=== PATIENT | female | born 1990 | race African-American/Black ===

== ENCOUNTER 2017-12-01 21:46 | Emergency (ER) | payer OTHER ==
[2017-12-01 21:52] VITALS: BP 130/58; PULSE 82; TEMP 98.2; BMI 34.3
--- NOTE | 2017-12-01 21:57 | PDOC ---
History of Present Illness - General Chief Complaint: Pain Stated Complaint: ABD PAIN + Time Seen by Provider: 12/01/17 21:49 - History of Present Illness Initial Comments: 12/01/17 22:22 The patient is a 27 year old female 10 week female with no significant PMH who presents for evaluation of lower abdominal pain. The patient reports that she has had many miscarriages in the past, but has not followed with a regular pickle solution maker with her current and has not had a recent US. She reports onset of lower abdominal cramping beginning earlier today prompting her presentation to the ED for evaluation. She otherwise denies vaginal bleeding, or vaginal discharge. She denies fevers, chills, nausea, vomiting, or changes with urination as well. Past History - Past Medical History Allergies/Adverse Reactions: Allergies Allergy/AdvReac Type Severity Reaction Status Date / Time No Known Drug Allergies Allergy Verified 12/01/17 21:49 lactose AdvReac Severe Vomiting Verified 12/01/17 21:49 Home Medications: Ambulatory Orders Albuterol Sulfate Inhaler - [Ventolin Hfa Inhaler -] 1 - 2 inh PO PRN 11/08/15 Cyclobenzaprine HCl [Flexeril -] 10 mg PO TID 11/08/15 Fluticasone/Salmeterol [Advair 250-50 Diskus] 1 each IH PRN 11/08/15 Ibuprofen [Motrin -] 400 mg PO TID PRN 11/08/15 [place] Carbonate [Eskalith -] 100 mg PO BID 11/08/15 Quetiapine Fumarate [Seroquel -] 300 mg PO HS 11/08/15 Topiramate [Topamax] 25 mg PO BID 11/08/15 Albuterol Sulfate Inhaler - [Ventolin HFA Inhaler -] 2 puff PO PRN PRN 08/17/16 Vit/Iron Fum/Folic AC [ Tablet] 1 tablet PO DAILY 08/17/16 [place] Carbonate [Eskalith -] 150 mg PO BID #60 capsule 04/28/17 Quetiapine Fumarate [Seroquel] 100 mg PO HS #60 tablet 04/28/17 Topiramate [Topamax] 25 mg PO BID #60 cap.sprink 04/28/17 Asthma: Yes Cancer: No Cardiac Disorders: No CVA: No COPD: No CHF: No Dementia: No Diabetes: No GI Disorders: No Disorders: No HTN: No Hypercholesterolemia: No Kidney Stones: No Liver Disease: No Seizures: No Thyroid Disease: No - Reproductive History PID: No - Immunization History Immunization Up to Date: Yes - Suicide/Smoking/Psychosocial Hx Smoking History: Current some day smoker Have you smoked in the past 12 months: No Number of Cigarettes Smoked Daily: 4 Cigars Per Day: 0 Information on smoking cessation initiated: No 'Breaking Loose' booklet given: 11/08/15 Hx Alcohol Use: No Drug/Substance Use Hx: Yes Substance Use Type: Alcohol, Marijuana Hx Substance Use Treatment: Yes (this is her first inpatient rehba.Pt was treated on outpatient basis anly) Review of Systems - Review of Systems Comments:: 12/01/17 22:27 Constitutional: No fevers, chills, fatigue, malaise HEENT: No Rhinorrhea, nasal congestion, visual changes Cardiovascular: No chest pain, syncope, palpitations, lightheadedness Respiratory: No Cough, SOB, Hemoptysis, Gastrointestinal: Lower abdominal cramping. No Nausea, Vomiting, Constipation, Diarrhea, Melena Genitourinary: No Dysuria, Frequency, Urgency, Hesitancy, Hematuria, Flank pain Musculoskeletal: No Myalgia, arthralgia Skin: No rashes, itching, bruising, pallor Neurologic: No Headache, Dizziness, Numbness, Weakness, or Tingling Psychiatric: No Hallucinations. No SI or HI *Physical Exam - Vital Signs Last Vital Signs Temp Pulse Resp BP Pulse Ox 98.2 F 82 16 130/58 100 12/01/17 21:49 12/01/17 21:49 12/01/17 21:49 12/01/17 21:49 12/01/17 21:49 - Physical Exam Comments: 12/01/17 22:28 General Appearance: Nourished. No Apparent Distress HEENT: EOMI, TRISH. No Pharyngeal Erythema, Tonsillar Exudate, Tonsillar Erythema Neck: No Cervical Lymphadenopathy Respiratory/Chest: Lungs Clear, Normal Breath Sounds. No Crackles, Rales, Rhonchi, Wheezing Cardiovascular: Regular Rhythm, Regular Rate. No Murmur, Gallops, Rubs Gastrointestinal/Abdominal: Normal Bowel Sounds, Soft. Mild discomfort with deep palpation in the LLQ and suprapubic regions. No Guarding, Rebound, Pelvic Exam: Normal external exam, Cervical OS closed without bleeding. No CMT or Adenexal tenderness. Musculoskeletal: No CVA Tenderness Extremity: Normal Capillary Refill Integumentary: Normal Color, Dry, Warm Neurologic: Fully Oriented, Alert, Normal Mood/Affect, Normal Response, ED Treatment Course - LABORATORY CBC & Chemistry Diagram: 12/01/17 23:10 12/01/17 23:10 Medical Decision Making - Medical Decision Making 12/01/17 22:30 The patient is a 27 year old female 3 month female with no significant PMH who presents for evaluation of lower abdominal pain. Differential includes but is not limited to: UTI, Round Ligament Pain, Infectious, Metabolic derangement. Given the patient's symptoms and history of high risk pregnancies, we will obtain a cbc, cmp, ua, beta HCG, and transvaginal US to evaluate further for possible etiologies. We will treat with iv fluids and iv tylenol in the meantime. We will continue to monitor and reassess. 12/01/17 23:49 CBC, ua are unremarkable. Transvaginal US demonstrated a single live intrauterine at 9weeks 6days as read by our radiologist. We are comfortable discharging the patient home at this time with OB follow up. We discussed the results, plan, and return precautions with the patient who voiced understanding and is agreeable with the plan. *DC/Admit/Observation/Transfer Diagnosis at time of Disposition: Abdominal pain during Qualifiers: Trimester: first trimester Qualified Code(s): O26.891 - Other specified related conditions, first trimester; R10.9 - Unspecified abdominal pain; R10.9 - Unspecified abdominal pain - Discharge Dispostion Disposition: HOME Condition at time of disposition: Good Admit: No - Referrals Referrals: Igor Singh MD [Staff Physician] - - Patient Instructions Printed Discharge Instructions: DI for -- Discomforts and Remedies, DI for Abdominal Pain -- Early Additional Instructions: Please return to the ER if you experience concerning or worsening symptoms including worsening pain, vomiting, fevers, or vaginal bleeding. Your lab results and ultrasound were normal here in the ER and show a normal healthy . It is important that you call to schedule a follow up appointment with your TREE FRUIT AND NUT FARMING SUPERVISOR physician within 2-3 days to discuss your ER visit and further management of your symptoms. - Post Discharge Activity
[2017-12-01] MEDS ORDERED: SODIUM CHLORIDE 1,000 ML IV STA (22:16)
[2017-12-01] MEDS ORDERED: ACETAMINOPHEN 1000 MG/100 ML VIAL (NON FORMULARY) IVPB ONE (22:16)
--- NOTE | 2017-12-01 22:57 | PDOC ---
Attending Attestation - Resident Resident Name: Miles eBllamy - ED Attending Attestation I have performed the following: I have examined & evaluated the patient, The case was reviewed & discussed with the resident, I agree w/resident's findings & plan, Exceptions are as noted - HPI HPI: 12/01/17 22:56 27 yo female BIBA from home for pelvic discomfort ,she states she is - Physicial Exam PE: 12/01/17 23:54 27-year-old female who states she's had some pelvic discomfort. She states she is about 2 months Head normocephalic/atraumatic. Neck supple Lungs clear to auscultation. CV S regular rate and rhythm S1, S2 Abdomen soft, no guarding. Pelvic done by Dr. Bellamy, no vaginal bleeding, os closed. Extremities no edema, no cellulitis. Skin warm and dry, no petechiae, no rashes. Neuro alert and oriented 3, ambulatory Psych patient is appropriate - Medical Decision Making 12/01/17 23:56 Patient has an December 18 appointment with her IN FLIGHT REFUELING OPERATOR for continued care. Transvaginal ultrasound tonight shows single live intrauterine of 9 weeks and 6 days with heart tones greater than 150 Impression pelvic discomfort during
[2017-12-01] MEDS ORDERED: ACETAMINOPHEN INJECTION 100 ML IVPB ONE (23:03)
[2017-12-01 23:25] LABS: EOS % 0.9 % (0-4.5); HEMATOCRIT 37.7 % (32.4-45.2); LYMPH % 40.8 % (8-40); MCHC 34.4 g/dl (32.0-36.0); MEAN PLT VOLUME 8.4 fl (7.5-11.1); MONO % 7.8 % (3.8-10.2); NEUT % 49.5 % (42.8-82.8); PLATELET COUNT 344 K/MM3 (134-434); RBC 4.05 M/mm3 (3.60-5.2)
[2017-12-01 23:28] LABS: HCG,QUALITATIVE URINE POSITIVE
[2017-12-01 23:31] LABS: URINE APPEARANCE CLEAR; URINE BILIRUBIN NEGATIVE (NEGATIVE); URINE BLOOD NEGATIVE (NEGATIVE); URINE COLOR STRAW; URINE GLUCOSE (UA) NEGATIVE (NEGATIVE); URINE KETONE NEGATIVE (NEGATIVE); URINE LEUK ESTERASE NEGATIVE (NEGATIVE); URINE NITRITE NEGATIVE (NEGATIVE); URINE PROTEIN NEGATIVE (NEGATIVE); URINE UROBILINOGEN NEGATIVE mg/dL (0.2-1.0)
== END 2017-12-02 00:29 | disposition home or self-care (01) ==
LOC: JER 21:46
PROC: 3E033NZ Introduction of Analgesics, Hypnotics, Sedatives into Peripheral Vein, Percutaneous Approach (ICD-10-PCS; principal; 2017-12-01)
DX: O26.891 Other specified pregnancy related conditions, first trimester (principal); R10.30 Lower abdominal pain, unspecified; Z3A.10 10 weeks gestation of pregnancy
CPT/HCPCS: 36415; 76801-TC; 81003; 84703; 85025; 96374; 99283-25; J0131; J7030

== ENCOUNTER 2018-04-10 15:22 | Emergency (ER) | payer OTHER ==
[2018-04-10 15:35] VITALS: BMI 37.8
[2018-04-10 16:11] VITALS: BP 103/55; PULSE 82; TEMP 98.4
== END 2018-04-10 16:50 | disposition home or self-care (01) ==
LOC: JER 15:22
DX: O26.893 Other specified pregnancy related conditions, third trimester (principal); R10.31 Right lower quadrant pain; Z3A.29 29 weeks gestation of pregnancy
CPT/HCPCS: 99281-25

== ENCOUNTER 2018-06-15 02:25 | Inpatient (IN) | payer SELFPAY ==
[~2018-06-15 02:25] MED LIST: ELECTROLYTE-148 SOLN 500 ML IV ONE
[2018-06-15] MEDS ORDERED: ELECTROLYTE-148 SOLN 1,000 ML IV SCH ×2 (03:25→04:10)
[2018-06-15 03:39] LABS: BASO % 0.4 % (0-2.0); EOS % 0.8 % (0-4.5); HEMATOCRIT 31.9 % (32.4-45.2); HEMOGLOBIN 10.8 GM/dL (10.7-15.3); LYMPH % 22.2 % (8-40); MCH 31.1 pg (25.7-33.7); MCHC 33.7 g/dl (32.0-36.0); MEAN CELL VOLUME 92.1 fl (80-96); MEAN PLT VOLUME 8.7 fl (7.5-11.1); NEUT % 67.6 % (42.8-82.8); PLATELET COUNT 351 K/MM3 (134-434); RBC 3.47 M/mm3 (3.60-5.2); RDW 13.1 % (11.6-15.6)
[2018-06-15] MEDS ORDERED: ELECTROLYTE-148 SOLN 500 ML IV ONE (03:40)
[2018-06-15] MEDS ORDERED: CITRIC ACID/SODIUM CITRATE 30 ML UNIT-DOSE CUP PO ONE (03:40)
[2018-06-15 03:53] LABS: COCAINE, UR NEGATIVE ng/ml (CUTOFF=300); METHADONE, UR NEGATIVE ng/ml (CUTOFF=300); OPIATES, URI NEGATIVE ng/ml (CUTOFF=300); PHENCYCLIDINE,URINE NEGATIVE ng/ml (CUTOFF=25); URINE AMPHETAMINES NEGATIVE ng/ml (CUTOFF=500); URINE BARBITURATES NEGATIVE ng/ml (CUTOFF=200); URINE BENZODIAZEPINES NEGATIVE ng/ml (CUTOFF=200)
[2018-06-15 04:06] LABS: INR 0.92 (0.83-1.09); PROTHROMBIN TIME (PATIENT) 10.9 SEC (9.7-13.0)
[2018-06-15 04:08] LABS: ACTIVATED PTT 28.1 SECONDS (25.2-36.5)
[2018-06-15 04:14] LABS: ANION GAP 9 MMOL/L (8-16); BLOOD UREA NITROGEN 6 mg/dL (7-18); CALCIUM 8.5 mg/dL (8.5-10.1); CHLORIDE 106 mmol/L (98-107); CO2 22 mmol/L (21-32); CREATININE 0.5 mg/dL (0.55-1.3); GLUCOSE,RANDOM 81 mg/dL (74-106); POTASSIUM 3.7 mmol/L (3.5-5.1); SODIUM 137 mmol/L (136-145)
[2018-06-15 04:29] VITALS: BMI 42.0
[2018-06-15] MEDS ORDERED: ONDANSETRON 4 MG/2 ML VIAL IVPUSH PRN (04:43)
[2018-06-15] MEDS ORDERED: morphine SULFATE/Preservative Free 0.5 MG/ML (1cc Syringe) ONE (04:52)
[2018-06-15] MEDS ORDERED: DEXTROSE 5%-LACTATED RINGERS 1,000 ML IV SCH (05:00)
[2018-06-15] MEDS ORDERED: KETOROLAC TROMETHAMINE 30 MG/1 ML VIAL ONE (05:00)
--- NOTE | 2018-06-15 05:05 | HP ---
Past Medical History - Admission Chief Complaint: Labor pain History of Present Illness: 27 yo @ 38 weeks gestation, with 2 prior C-Sections, presents c/o labor pain. Patient was then admitted for repeat . History Source: Patient Limitations to Obtaining History: No Limitations - Past Medical History ...: 12 ...Para: 2 ...Term: 0 ...: 2 ...Spon : 5 ...Induced : 4 ...Multiple Gestation: 0 ...LMP: 09/19/17 ... Weeks Gestation by Dates: 38.3 ...EDC by Dates: 06/26/18 ...EDC by Sono: 06/25/18 - Past Surgical History Past Surgical History: Yes: Hx Myomectomy: No Hx Transabdominal Cerclage: No - Smoking History Smoking history: Current some day smoker Have you smoked in the past 12 months: Yes Aproximately how many cigarettes per day: 5 - Alcohol/Substance Use Hx Alcohol Use: No Home Medications - Allergies Allergies/Adverse Reactions: Allergies Allergy/AdvReac Type Severity Reaction Status Date / Time No Known Drug Allergies Allergy Verified 06/15/18 03:18 lactose AdvReac Severe Vomiting Verified 05/05/18 18:12 - Home Medications Home Medications: Ambulatory Orders Vit/Iron Fum/Folic AC [ Tablet] 1 tablet PO DAILY 08/17/16 Family Disease History - Family Disease History Family History: Unremarkable Review of Systems - Review of Systems Constitutional: reports: No Symptoms Eyes: reports: No Symptoms HENT: reports: No Symptoms Neck: reports: No Symptoms Cardiovascular: reports: No Symptoms Respiratory: reports: No Symptoms Gastrointestinal: reports: No Symptoms Genitourinary: reports: Pain Breasts: reports: No Symptoms Reported Musculoskeletal: reports: No Symptoms Integumentary: reports: No Symptoms Neurological: reports: No Symptoms Endocrine: reports: No Symptoms Hematology/Lymphatic: reports: No Symptoms Psychiatric: reports: No Symptoms Pain Intensity: 8 Physical Exam - Maternity Vital Signs: Vital Signs Temperature 99.0 F 06/15/18 04:18 Pulse Rate 76 06/15/18 04:18 Respiratory Rate 18 06/15/18 04:18 Blood Pressure 127/71 06/15/18 04:18 O2 Sat by Pulse Oximetry (%) Constitutional: Yes: Well Nourished Eyes: Yes: Conjunctiva Clear HENT: Yes: Atraumatic Neck: Yes: Supple Cardiovascular: Yes: Regular Rate and Rhythm Lungs: Clear to auscultation - Abdominal Exam/OB Number of Fetuses: Single Presentation: Vertex Intensity: Mod/Strong - Vaginal Exam/OB Dilatation (cm): 1 Effacement (%): 70 Amniotic Membrane Status: Intact Presentation: Vertex/Position Station: -2 - Physical Exam Musculoskeletal: Yes: WNL Integumentary: Yes: WNL ...Motor Strength: WNL Psychiatric: Yes: Alert, Oriented - Labs Lab Results: CBC, BMP 06/15/18 03:10 06/15/18 03:10 Problem List - Problems (1) 38 weeks gestation of Code(s): Z3A.38 - 38 WEEKS GESTATION OF (2) Pain during labor Code(s): O99.89 - OTH DISEASES AND CONDITIONS COMPL PREG/CHLDBRTH; R52 - PAIN, UNSPECIFIED (3) Previous section complicating Code(s): O34.219 - MATERNAL CARE FOR UNSP TYPE SCAR FROM PREVIOUS DEL Assessment/Plan 38 weeks gestation Previous Labor pain Pre op for repeat Consent signed Anesthesia to see patient
[2018-06-15] MEDS ORDERED: SODIUM CHLORIDE 0.9% P/F 10 ML VIAL IJ ONE (05:22)
[2018-06-15] MEDS ORDERED: ceFAZolin SODIUM 1 GM VIAL ONE (05:22)
[2018-06-15] MEDS ORDERED: ePHEDrine SULFATE 50 MG/1 ML AMPULE ONE (05:33)
[2018-06-15] MEDS ORDERED: OXYTOCIN 10 UNITS/ML VIAL ONE (05:36)
[2018-06-15] MEDS ORDERED: OXYTOCIN 20 UNITS in 0.9% NS 20 UNIT/1,000 ML INFUS.BAG IV ONE (06:07)
[2018-06-15] MEDS ORDERED: METHYLERGONOVINE MALEATE 0.2 MG/1 ML AMP IM PRN (06:10)
--- NOTE | 2018-06-15 06:13 | OP ---
Operative Note - Note: Operative Date: 06/15/18 Pre-Operative Diagnosis: Previous in labor Operation: Repeat Low Transverse Post-Operative Diagnosis: Same as Pre-op Surgeon: Sultana Dickerson Substation Electrician Supervisor: Narayan Mata Anesthesia: Spinal Specimens Removed: Placenta Estimated Blood Loss (mls): 600 Operative Report Dictated: Yes
[2018-06-15] MEDS: OXYTOCIN 20 UNITS in 0.9% NS 20 UNIT/1,000 ML INFUS.BAG IV SCH ×2 (06:20→18:00)
[2018-06-15] MEDS: IBUPROFEN 800 MG/8 ML IJ IVPB PRN ×2 (07:25→15:37)
[2018-06-15] MEDS ORDERED: IBUPROFEN 800 MG/8 ML IJ IVPB ONE (07:30)
[2018-06-15] MEDS ORDERED: TUBERCULIN PPD 5 TU/0.1ML SYRINGE (IN PATIENT USE ONLY) ID ONE (10:45)
[2018-06-15] MEDS ORDERED: oxyCODONE HCL 5 MG TABLET PO PRN ×2 (19:42→19:43)
[2018-06-15] MEDS: oxyCODONE HCL 5 MG TABLET PO PRN (20:05)
[2018-06-15] MEDS: SIMETHICONE 80 MG TAB.CHEW (FP) PO PRN (20:05)
[2018-06-16] MEDS: SIMETHICONE 80 MG TAB.CHEW (FP) PO PRN ×5 (01:11→19:41)
[2018-06-16] MEDS: oxyCODONE HCL 5 MG TABLET PO PRN ×5 (01:11→19:41)
[2018-06-16] MEDS: OXYTOCIN 20 UNITS in 0.9% NS 20 UNIT/1,000 ML INFUS.BAG IV SCH (02:23)
[2018-06-16] MEDS: IBUPROFEN 600 MG TABLET (FP) PO PRN ×4 (05:18→19:41)
[2018-06-16] MEDS ORDERED: BISACODYL 10 MG SUPP.RECT RC PRN (06:10)
[2018-06-16 08:09] LABS: BASO % 0.4 % (0-2.0); EOS % 1.7 % (0-4.5); HEMATOCRIT 25.4 % (32.4-45.2); HEMOGLOBIN 8.5 GM/dL (10.7-15.3); LYMPH % 23.2 % (8-40); MCH 31.1 pg (25.7-33.7); MCHC 33.5 g/dl (32.0-36.0); MEAN CELL VOLUME 92.8 fl (80-96); MEAN PLT VOLUME 8.6 fl (7.5-11.1); MONO % 10.9 % (3.8-10.2); NEUT % 63.8 % (42.8-82.8); PLATELET COUNT 240 K/MM3 (134-434); RBC 2.74 M/mm3 (3.60-5.2); RDW 12.7 % (11.6-15.6)
[2018-06-16] MEDS ORDERED: DIPHTH,PERTUSS(ACELL),TET 0.5 ML DISP.SYRIN IM ONE ×2 (14:00→17:00)
[2018-06-16] MEDS ORDERED: TUBERCULIN PPD 5 TU/0.1ML SYRINGE (IN PATIENT USE ONLY) ID ONE (16:30)
--- NOTE | 2018-06-16 16:54 | PN ---
Post Progress Note Type of Delivery: Repeat C/S Vital Signs: Vital Signs Temperature 98.5 F 06/16/18 07:50 Pulse Rate 71 06/16/18 07:50 Respiratory Rate 18 06/16/18 07:50 Blood Pressure 108/60 06/16/18 07:50 O2 Sat by Pulse Oximetry (%) 100 06/15/18 07:14 Uterus: Yes: Fundus Firm, Fundus @ umbilicus Incision: Yes: Dressing dry and intact Abdomen/GI: Yes: Abdomen soft Lochia: Yes: Rubra Lochia, amount: Small Extremities: Yes: Calves non-tender Activity: Ambulating - Labs Labs: CBC WBC 11.0 K/mm3 (4.0-10.0) H 06/16/18 07:25 RBC 2.74 M/mm3 (3.60-5.2) L 06/16/18 07:25 Hgb 8.5 GM/dL (10.7-15.3) L 06/16/18 07:25 Hct 25.4 % (32.4-45.2) L D 06/16/18 07:25 MCV 92.8 fl (80-96) 06/16/18 07:25 MCH 31.1 pg (25.7-33.7) 06/16/18 07:25 MCHC 33.5 g/dl (32.0-36.0) 06/16/18 07:25 RDW 12.7 % (11.6-15.6) 06/16/18 07:25 Plt Count 240 K/MM3 (134-434) D 06/16/18 07:25 MPV 8.6 fl (7.5-11.1) 06/16/18 07:25 Absolute Neuts (auto) 7.0 K/mm3 (1.5-8.0) 06/16/18 07:25 Neutrophils % 63.8 % (42.8-82.8) 06/16/18 07:25 Lymphocytes % 23.2 % (8-40) 06/16/18 07:25 Monocytes % 10.9 % (3.8-10.2) H 06/16/18 07:25 Eosinophils % 1.7 % (0-4.5) D 06/16/18 07:25 Basophils % 0.4 % (0-2.0) 06/16/18 07:25 Nucleated RBC % 0 % (0-0) 06/16/18 07:25 Problem List - Problems (1) S/P section Code(s): Z98.891 - HISTORY OF UTERINE SCAR FROM PREVIOUS SURGERY Assessment/Plan 27yo s/p RLTCS, POD#1 Routine PP care OOB, ambulate Labs reviewed, wnl Anticipate d/c to home POD#3 with follow up at her primary OB office Ryder Oakley MD
--- NOTE | 2018-06-16 18:42 | PATH ---
Surgical Pathology Report Patient Name: SYLVIA ALY Med. Rec. #: [id number] /Age/Gender: 1990 (Age: 27) / F Account: [id number] Location: [facility] OBS/SENIOR C WEB DEVELOPER Taken: 06/15/2018 Received: 06/15/2018 Reported: 06/16/2018 Physicians: Sultana Dickerson M.D. Specimen(s) Received PLACENTA Clinical History , 38.4 weeks, history of asthma, SAB x 5, IAB x 4, history of preeclampsia, and labor Previous surgery: Previous x 2 (05/2011, 10/2016) Final Diagnosis PLACENTA, SECTION: 470 G THIRD TRIMESTER PLACENTA WITH TRIVASCULAR UMBILICAL CORD AND UNREMARKABLE PLACENTAL MEMBRANES. Electronically Signed Caitlyn Alarcon M.D. Gross Description The specimen is received fresh labeled "placenta" is a 470 gram, 18 x 6 x 1.8 cm. placenta with attached membranes and umbilical cord. The attached membranes are opaque, yellow-tinged and insert marginally. The umbilical cord measures 26 cm. in length and averages 1.5 cm. in diameter. The cord inserts eccentrically, 6 cm. to the nearest margin. No true knots or strictures are identified. Cut surface of the umbilical cord reveals 3 vessels. The surface is yanez-blue with minimal fibrin deposition and appropriate caliber vessels. The maternal surface is red-brown with focal defects. Sectioning reveals red-brown, spongy parenchyma. No lesions are identified. Log Chain Feeder sections are submitted in three cassettes as follows: 1- membrane rolls and umbilical cord; 2-3- full thickness sections of placenta. MLSZ/06/15/2018 sanml/06/15/2018
[2018-06-16] MEDS: diphenhydrAMINE HCL 25 MG CAPSULE (FP) PO PRN (22:16)
[2018-06-17] MEDS: oxyCODONE HCL 5 MG TABLET PO PRN ×6 (00:35→20:05)
[2018-06-17] MEDS: SIMETHICONE 80 MG TAB.CHEW (FP) PO PRN ×6 (00:35→20:06)
[2018-06-17] MEDS: IBUPROFEN 600 MG TABLET (FP) PO PRN ×6 (00:36→20:06)
[2018-06-17] MEDS: diphenhydrAMINE HCL 25 MG CAPSULE (FP) PO PRN ×2 (08:52→14:52)
--- NOTE | 2018-06-17 08:56 | PN ---
Post Progress Note Type of Delivery: Repeat C/S Vital Signs: Vital Signs Temperature 98.6 F 06/16/18 22:43 Pulse Rate 70 06/16/18 22:43 Respiratory Rate 18 06/16/18 22:43 Blood Pressure 111/70 06/16/18 22:43 O2 Sat by Pulse Oximetry (%) 100 06/16/18 22:00 Breast Exam: Yes: Soft Uterus: Yes: Fundus Firm, Fundus below umbilicus Abdomen/GI: Yes: Abdomen soft Lochia: Yes: Rubra Lochia, amount: Small Extremities: Yes: Calves non-tender Activity: Ambulating - Labs Labs: CBC WBC 11.0 K/mm3 (4.0-10.0) H 06/16/18 07:25 RBC 2.74 M/mm3 (3.60-5.2) L 06/16/18 07:25 Hgb 8.5 GM/dL (10.7-15.3) L 06/16/18 07:25 Hct 25.4 % (32.4-45.2) L D 06/16/18 07:25 MCV 92.8 fl (80-96) 06/16/18 07:25 MCH 31.1 pg (25.7-33.7) 06/16/18 07:25 MCHC 33.5 g/dl (32.0-36.0) 06/16/18 07:25 RDW 12.7 % (11.6-15.6) 06/16/18 07:25 Plt Count 240 K/MM3 (134-434) D 06/16/18 07:25 MPV 8.6 fl (7.5-11.1) 06/16/18 07:25 Absolute Neuts (auto) 7.0 K/mm3 (1.5-8.0) 06/16/18 07:25 Neutrophils % 63.8 % (42.8-82.8) 06/16/18 07:25 Lymphocytes % 23.2 % (8-40) 06/16/18 07:25 Monocytes % 10.9 % (3.8-10.2) H 06/16/18 07:25 Eosinophils % 1.7 % (0-4.5) D 06/16/18 07:25 Basophils % 0.4 % (0-2.0) 06/16/18 07:25 Nucleated RBC % 0 % (0-0) 06/16/18 07:25 Problem List - Problems (1) S/P section Code(s): Z98.891 - HISTORY OF UTERINE SCAR FROM PREVIOUS SURGERY Assessment/Plan 27yo s/p RLTCS, POD#2 Routine PP care OOB, ambulate Labs reviewed D/C to home tomorrow Ryder Oakley MD
[2018-06-18] MEDS: oxyCODONE HCL 5 MG TABLET PO PRN ×4 (03:12→19:30)
[2018-06-18] MEDS: IBUPROFEN 600 MG TABLET (FP) PO PRN ×4 (03:12→19:28)
[2018-06-18] MEDS: SIMETHICONE 80 MG TAB.CHEW (FP) PO PRN ×4 (03:12→19:27)
--- NOTE | 2018-06-18 07:51 | PN ---
Progress Note (short form) - Note Progress Note: pod 2 s/p repeat c/s doing well, passing gas, no dizziness , ambulating CBC, BMP 06/16/18 07:25 06/15/18 03:10 abdomen soft, no distension, no cva uterus firm incision dry, clean no excess vaginal bleeding no claf tenderness plan ambulate , cbc in am iron vit
[2018-06-18 08:35] LABS: BASO % 0.7 % (0-2.0); EOS % 3.9 % (0-4.5); HEMOGLOBIN 8.7 GM/dL (10.7-15.3); LYMPH % 36.2 % (8-40); MCH 31.1 pg (25.7-33.7); MCHC 33.5 g/dl (32.0-36.0); MEAN CELL VOLUME 92.7 fl (80-96); MEAN PLT VOLUME 8.3 fl (7.5-11.1); MONO % 15.1 % (3.8-10.2); NEUT % 44.1 % (42.8-82.8); PLATELET COUNT 260 K/MM3 (134-434); RDW 13.1 % (11.6-15.6); WHITE BLOOD COUNT 5.6 K/mm3 (4.0-10.0)
[2018-06-18 19:34] VITALS: TEMP 98.6
[2018-06-19] MEDS ORDERED: ACETAMINOPHEN 500 MG TABLET (FP) PO PRN ×2 (00:52→00:53)
[2018-06-19] MEDS: IBUPROFEN 600 MG TABLET (FP) PO PRN ×3 (00:58→11:29)
[2018-06-19] MEDS ORDERED: ACETAMINOPHEN 325 MG TABLET (FP) PO PRN (01:00)
[2018-06-19] MEDS: SIMETHICONE 80 MG TAB.CHEW (FP) PO PRN (04:22)
[2018-06-19 15:37] VITALS: BP 145/92; PULSE 81
--- NOTE | 2018-06-19 17:01 | DS ---
Physical Exam-SALES REPRESENTATIVE [employer]ITURE Vital Signs: Vital Signs Temperature 98.6 F 06/19/18 10:00 Pulse Rate 81 06/19/18 10:00 Respiratory Rate 20 06/19/18 10:00 Blood Pressure 145/92 06/19/18 10:00 O2 Sat by Pulse Oximetry (%) 100 06/16/18 22:00 Constitutional: Yes: Well Nourished, No Distress, Calm Eyes: Yes: WNL, Conjunctiva Clear, EOM Intact HENT: Yes: WNL, Atraumatic, Normocephalic Neck: Yes: WNL, Supple, Trachea Midline Cardiovascular: Yes: WNL, Regular Rate and Rhythm Respiratory: Yes: WNL, Regular, CTA Bilaterally Gastrointestinal: Yes: WNL ...Rectal Exam: Yes: WNL Renal/: Yes: WNL ....Post : Yes: Uterus firm, Uterus non-tender, Slight lochia rubra Breast(s): Yes: WNL Musculoskeletal: Yes: WNL Extremities: Yes: WNL Edema: No Integumentary: Yes: WNL Wound/Incision: Yes: Clean/Dry, Well Approximated, [place] Intact Neurological: Yes: WNL, Alert, Oriented ...Motor Strength: WNL Psychiatric: Yes: WNL, Alert, Oriented Labs: CBC, BMP 06/18/18 07:50 06/15/18 03:10 Delivery - Delivery Section: Repeat, Low Flap Transverse Type of Anesthesia: Spinal Episiotomy/Laceration: None EBL (cc): 700 Delivery, Single - Stages of Labor Date 1st Stage Initiatied: 06/15/18 Time 1st Stage Initiated: 01:00 Date of Delivery: 06/15/18 Time of Delivery: 05:43 Time Placenta Delivered: 05:45 Placenta: Yes: Expressed - Condition of Infant Aircraft Manager/Senior Cost Accountant Present: Yes Name: Roberto EspinozaDomingo Gender: Male Weight: 5 lb 9 oz Position: Left, OA Total Hours ROM (Hrs/Mins): 3MIN - 1 Minute Total Score: 9 5 Minutes Total Score: 9 - Feeding Plan Initial Plan: Elected not to breastfeed exclusively throughout hospitalization Discharge Summary Reason For Visit: LABOR ADMIT Procedures: Principal: repeat lst c/s Hospital Course: no complication Condition: Good - Instructions Diet, Activity, Other Instructions: regular diet, follow up [facility] care 1week, if pain, fever , heavy vaginal bleeding call MD Referrals: Makenna Oakley MD [Staff Physician] - Disposition: HOME - Home Medications Comprehensive Discharge Medication List: Ambulatory Orders Vit/Iron Fum/Folic AC [ Tablet] 1 tablet PO DAILY 08/17/16 Ibuprofen [Motrin -] 600 mg PO QID #28 tablet 06/17/18
== END 2018-06-19 16:00 | disposition home or self-care (01) | DRG 540 ==
LOC: JDEL 02:25 → JLDR 03:40 → J3W 08:30
PROVIDERS: ADMIT Obstetrics & Gynecology; ATTEND Obstetrics & Gynecology
PROC: 10D00Z1 Extraction of Products of Conception, Low, Open Approach (ICD-10-PCS; principal; 2018-06-15)
DX: O34.211 Maternal care for low transverse scar from previous cesarean delivery (principal); Z3A.38 38 weeks gestation of pregnancy; Z37.0 Single live birth
CPT/HCPCS: 36415; 80048; 80307; 85025; 85610; 85730; 86593; 86850; 86900; 86901; 87389; 88307-TC; 90686; 90715; G0008